=== PATIENT | female | born 2005 | race Caucasian/White ===

== ENCOUNTER 2023-12-27 17:27 | Emergency (ER) | payer OTHER, MEDICAID, SELFPAY ==
[2023-12-27 17:32] VITALS: BP 150/86; PULSE 72; RESP 16; TEMP 36.8; O2SAT 99; BMI 17.2
--- NOTE | 2023-12-27 18:59 | ED.URI ---
HPI - URI/Sore Throat <Barbara Colón PA-C - Last Filed: 12/27/23 19:33> General Chief Complaint: Upper Respiratory Symptoms Stated Complaint: states sinus infection/object stuck in throat Time Seen by Provider: 12/27/23 18:53 Source: patient Mode of arrival: Ambulatory History of Present Illness HPI Narrative: Patient is a 18-year-old female presenting for evaluation for nasal congestion x2 weeks and swallowing a fingernail yesterday. She reports that 2 weeks ago her symptoms started with fever and body aches and nasal congestion and cough. She states her cough is improving and she has not had any fever body aches recently. She denies any pressure in her forehead or any double vision. She denies any abdominal pain nausea or vomiting. She reports if it sensation of popping in both of her ears but denies pain. Regarding swelling fingernail, she reports some discomfort in her throat after swallowing the fingernail. She is concerned it may be stuck. She states she was able to eat a burrito today as well as Kenalog and some crackers without issue. Review of Systems <Barbara Colón PA-C - Last Filed: 12/27/23 19:33> Review of Systems Narrative: See HPI Exam <Barbara Colón PA-C - Last Filed: 12/27/23 19:33> Initial Vital Signs Initial Vital Signs: Vital Signs Temperature 98.3 F 12/27/23 17:32 Pulse Rate 72 12/27/23 17:32 Respiratory Rate 16 12/27/23 17:32 Blood Pressure 150/86 H 12/27/23 17:32 Pulse Oximetry 99 12/27/23 17:32 Oxygen Delivery Method Room Air 12/27/23 17:32 GENERAL: 18 year old patient appears stated age. Well-developed patient, in no acute distress. HEAD: Atraumatic. Normocephalic. EYES: Pupils equal round and reactive. No scleral icterus. No injection or drainage. ENT: Nose with some rhinorrhea present bilaterally. Nasal mucosa edematous with erythema. Nares are without bleeding or purulent drainage. Throat without erythema, No tonsillar hypertrophy or exudate noted. Airway patent. Uvula midline TM visualized bilaterally with good cone of light, there does appear to be some small bubbles and serous effusion present worse on right compared to left. No bulging or erythema noted. Canals clear bilaterally. Pinna, tragus are non tender to palpation. NECK: Trachea midline. Non tender, No cervical, peritonsillar, submandibular lymphadenopathy CARDIOVASCULAR: Regular rate and rhythm without murmurs, gallops, or rubs. RESPIRATORY: Clear to auscultation. Breath sounds equal bilaterally. No wheezes, rales, or rhonchi. NEURO: AOx3. SKIN: No rash or erythema of visible areas <Karly Montoya MD - Last Filed: 12/28/23 01:30> Initial Vital Signs Initial Vital Signs: Vital Signs Temperature 98.3 F 12/27/23 17:32 Pulse Rate 72 12/27/23 17:32 Respiratory Rate 16 12/27/23 17:32 Blood Pressure 150/86 H 12/27/23 17:32 Pulse Oximetry 99 12/27/23 17:32 Oxygen Delivery Method Room Air 12/27/23 17:32 Course <Barbara Colón PA-C - Last Filed: 12/27/23 19:33> Vital Signs Vital signs: Vital Signs - 8 hr 12/27/23 17:32 12/27/23 19:09 Temperature 98.3 F 97.9 F Pulse Rate 72 61 Respiratory Rate 16 16 Blood Pressure 150/86 H 111/67 Pulse Oximetry 99 99 Oxygen Delivery Method Room Air Room Air <Karly Montoya MD - Last Filed: 12/28/23 01:30> Vital Signs Vital signs: Vital Signs - 8 hr 12/27/23 17:32 12/27/23 19:09 Temperature 98.3 F 97.9 F Pulse Rate 72 61 Respiratory Rate 16 16 Blood Pressure 150/86 H 111/67 Pulse Oximetry 99 99 Oxygen Delivery Method Room Air Room Air MDM - URI/Sore Throat <Barbara Colón PA-C - Last Filed: 12/27/23 19:33> MDM Narrative Medical decision making narrative: Patient is a 18-year-old female presenting with her mom for evaluation of concern for sinus infection and swelling or fingernail yesterday. Physical exam was reassuring. Patient denied any tenderness to percussion of sinuses and denied any pain radiating into her teeth nor any recent fever body aches. Reassured her that she likely does not have a bacterial sinus infection no antibiotics are needed today. I recommend treatment with an yokl-uak-muspsza allergy medicines such as cetirizine and Flonase. Recommend follow up in the ER if she should develop any double vision severe headache or worsening signs or symptoms. Regarding swelling of the fingernail, discussed with patient that most likely since she has been able to eat comfortably since then, the fingernail was swallowed, but a small scratch can have some continued irritation. Discussed that no further imaging is needed today, but if she should develop worsening pain with swallowing, or other concerning signs or symptoms to follow up for further evaluation in the ER. Multiple etiologies for patient's symptoms considered including, but not limited to: Sinus infection, ear infection, foreign body in throat Findings and discharge diagnosis discussed with patient/family followed by verbalization of understanding Return precautions discussed with patient/family whom verbalize understanding of diagnosis and plan Discharge Plan Departure Patient Disposition: Home Clinical Impression: Upper respiratory infection Qualifiers: URI type: unspecified viral URI Qualified Code(s): J06.9 - Acute upper respiratory infection, unspecified Activity Restrictions/Additional Instructions: *You have been diagnosed with upper respiratory infection of likely viral origin. Thankfully it sounds like her symptoms have mostly resolved except for some continued nasal congestion. I recommend that you treat this with kutc-oiy-njcuwci allergy medicine such as cetirizine as well as ojpr-czj-fnzuewr fluticasone nasal spray. These can help reduce inflammation and reduce congestion. Regarding the scratch sensation in your throat after swallowing a fingernail, it seems most likely that there is some residual irritation. I recommend continuing follow up with your primary care provider if this should become more painful or if you should have difficulty swallowing other food. Physical exam today was reassuring with no evidence of throat swelling to indicate worsening issue. Please follow up in the emergency department if you should have difficulty swallowing, severe throat pain, difficulty breathing, severe headache, double vision or other concerning signs or symptoms. Please follow up with her primary care provider if you develop ear pain, pressure below your eyes or other concerning signs or symptoms that indicate your symptoms today have developed into an ear infection or sinus infection. *Please follow up with your primary care provider in 2-3 days, call for an appointment. Let them know you were seen in the Emergency Department and that we ask that you be seen in follow up. We will electronically transmit a record of today's note if your PCP is in our system *If you do not have a primary care provider please contact the [facility] Resource line at [phone]. They will ask some questions about your medical history and help get you set up with a doctor in the community. *Return to Emergency Department if you should have any new, worsening or concerning symptoms, such as [fever greater than 101 F, shaking chills, worsening pain, persistent vomiting or other bothersome symptoms] Referrals: Miscellaneous,Doctor, [Primary Care Provider] - Stand Alone Forms: Patient Portal/API ED Sign-out <Karly Montoya MD - Last Filed: 12/28/23 01:30> Cosign ED Attending Cosignature Attestation: I did not see this patient. I was available all times for consultation.
[2023-12-27 19:09] VITALS: BP 111/67; PULSE 61; RESP 16; TEMP 36.6; O2SAT 99
== END 2023-12-27 19:31 | disposition home or self-care (01) ==
PROVIDERS: Emergency Provider Physician Assistant
DX: J06.9 Acute upper respiratory infection, unspecified (principal)
CPT/HCPCS: 99281